=== PATIENT | female | born 1935 | race Caucasian/White ===

== ENCOUNTER → 2017-06-09 | Outpatient (CLI) | payer MEDICARE, BC ==
[~2017-06-09] MED LIST: ASCORBIC ACID500 MG PO; CALCIUM + VITA1 EACH PO; CLARITIN10 MG PO; PRESERVISION A1 EACH PO; PRILOSEC20 MG PO; TOPROL XL25 MG PO
== END ==
LOC: GNJRC 10:00
DX: M25.551 Pain in right hip (principal)